=== PATIENT | female | born 1965 ===

== ENCOUNTER 2021-04-22 18:47 | Emergency (ER) | payer OTHER ==
[~2021-04-22] VITALS: Ht 170.2 cm; Wt 54.4 kg
[~2021-04-22 18:47] MED LIST: OXYACE5T PO
[2021-04-22] MEDS ORDERED: Percocet 5-3251 EACH PO (22:33)
[2021-04-22] MEDS ORDERED: MOTRIN IB200 MG PO (22:33)
[2021-04-23] MEDS ORDERED: CEPH500 PO (01:35)
[2021-04-23] MEDS ORDERED: SULTRIDS PO (01:35)
== END 2021-04-22 23:00 | disposition home or self-care (01) ==
LOC: ER 18:47
DX: S02.32XA Fracture of orbital floor, left side, initial encounter for closed fracture (principal); S02.832A Fracture of medial orbital wall, left side, initial encounter for closed fracture; S02.2XXA Fracture of nasal bones, initial encounter for closed fracture; L03.116 Cellulitis of left lower limb; R04.0 Epistaxis; V89.2XXA Person injured in unspecified motor-vehicle accident, traffic, initial encounter
CPT/HCPCS: 30901; 36415; 70450; 70486; 71250; 72125; 74176; 93005; 93010; 96372-59; 96374-59; 99284-25; A9270; J1170; J1885